=== PATIENT | male | born 1975 | race African-American/Black ===

== ENCOUNTER 2017-02-09 02:11 | Emergency (ER) | payer SELFPAY ==
[~2017-02-09] VITALS: Ht 185.4 cm; Wt 82.0 kg
[~2017-02-09 02:11] MED LIST: ALBU2.5V13
[2017-02-09] MEDS ORDERED: BACITRACIN ZINC OINT UDPKT TOP ONE ×2 (04:15→05:00)
[2017-02-09] MEDS ORDERED: LIDOCAINE HCL 1% 20ML VIAL (Pyxis) INJ MC ONE (05:00)
[2017-02-09] MEDS ORDERED: TETANUS, DIPHTHERIA, PERTUSSIS VAC/PF 0.5ML (>7YR OLD) IM ONE (06:15)
[2017-02-09 06:27] VITALS: BP 132/84
== END 2017-02-09 06:42 | disposition home or self-care (01) ==
LOC: ER 02:12
DX: S01.81XA Laceration without foreign body of other part of head, initial encounter (principal); R07.81 Pleurodynia; I10 Essential (primary) hypertension; F12.10 Cannabis abuse, uncomplicated; F17.200 Nicotine dependence, unspecified, uncomplicated; Y08.89XA Assault by other specified means, initial encounter; Y93.89 Activity, other specified; Y99.8 Other external cause status; Y92.89 Other specified places as the place of occurrence of the external cause
CPT/HCPCS: 12011; 70486; 71010; 90471; 90715; 99284; J3490; X7700; Z7610

== ENCOUNTER 2017-07-31 15:55 | Emergency (ER) | payer MEDICAID ==
[~2017-07-31] VITALS: Ht 188 cm; Wt 76.0 kg
[2017-07-31 20:48] VITALS: BP 107/66
[2017-07-31] MEDS ORDERED: LEVOFLOXACIN 250MG TABLET PO ONE (21:30)
== END 2017-07-31 22:47 | disposition home or self-care (01) ==
LOC: ER 15:55
DX: J18.9 Pneumonia, unspecified organism (principal); R07.89 Other chest pain; M79.674 Pain in right toe(s); I51.7 Cardiomegaly; J45.909 Unspecified asthma, uncomplicated; F17.210 Nicotine dependence, cigarettes, uncomplicated; F12.90 Cannabis use, unspecified, uncomplicated
CPT/HCPCS: 71010; 93005; 99284; Z7610

== ENCOUNTER 2018-09-27 14:14 | Emergency (ER) | payer MEDICAID ==
[~2018-09-27] VITALS: Ht 180.3 cm; Wt 90.0 kg
[2018-09-27] MEDS ORDERED: SODIUM CHLORIDE 0.9% 1,000 ML IV ONE (14:55)
[2018-09-27 15:45] LABS: CLARITY URINE CLEAR (CLEAR); COLOR URINE YELLOW (YELLOW); KETONES URINE NEGATIVE (NEGATIVE); LEUKOCYTE ESTERASE URINE NEGATIVE (NEGATIVE); NITRITE URINE NEGATIVE (NEGATIVE); OCCULT BLOOD URINE NEGATIVE (NEGATIVE); PROTEIN URINE NEGATIVE (NEGATIVE); UROBILINOGEN URINE 0.2 E.U./dL (0.2-1.0)
[2018-09-27 16:01] LABS: *AMPHETAMINES SCREEN URINE NEGATIVE (NEGATIVE); *BARBITURATES SCREEN URINE NEGATIVE (NEGATIVE); *BENZODIAZEPINES SCREEN URINE NEGATIVE (NEGATIVE)
[2018-09-27 16:02] LABS: *COCAINE SCREEN URINE NEGATIVE (NEGATIVE); CANNABINOID URINE SCREEN NEGATIVE (NEGATIVE); METHADONE URINE SCREEN NEGATIVE (NEGATIVE); OPIATES URINE SCREEN NEGATIVE (NEGATIVE); PHENCYCLIDINE URINE SCREEN PRESUMTIVE POSITIVE (NEGATIVE)
[2018-09-27 16:14] LABS: BASOPHILS % 0.8 % (0.0-2.0); EOSINOPHILS % 4.6 % (0.0-5.0); LYMPHOCYTES % 31.2 % (20.0-50.0); MEAN CORPUSCULAR HEMOGLOBIN 30.1 pg (28.0-32.0); MEAN PLATELET VOLUME 8.8 fl (7.4-10.4); MONOCYTES % 9.8 % (2.0-8.0); NEUTROPHILS % 53.6 % (40.0-76.0); PLATELET 271 x1000/uL (130-400); RED CELL DISTRIBUTION WIDTH 15.2 % (11.6-14.6)
[2018-09-27 16:16] LABS: CHLORIDE 107 mEq/L (98-107)
[2018-09-27 16:24] LABS: ETHANOL BLOOD 219 mg/dL
[2018-09-27 16:30] VITALS: BP 113/65
== END 2018-09-27 16:35 | disposition home or self-care (01) ==
LOC: ER 14:14
DX: T40.991A Poisoning by other psychodysleptics [hallucinogens], accidental (unintentional), initial encounter (principal); I10 Essential (primary) hypertension; J45.909 Unspecified asthma, uncomplicated; Y92.89 Other specified places as the place of occurrence of the external cause
CPT/HCPCS: 36415; 80053; 80305; 81003; 85025; 93005; 99284; G0482; J7030

== ENCOUNTER 2019-03-12 20:52 | Emergency (ER) | payer MEDICAID ==
[~2019-03-12] VITALS: Ht 188 cm; Wt 86.0 kg
[2019-03-12 22:00] VITALS: BP 116/77
[2019-03-13] MEDS ORDERED: TETANUS, DIPHTHERIA, PERTUSSIS VAC/PF 0.5ML (>7YR OLD) IM ONE (02:15)
[2019-03-13] MEDS ORDERED: ACETAMINOPHEN 325MG TABLET PO ONE (02:15)
[2019-03-13 04:46] LABS: *AMPHETAMINES SCREEN URINE PRESUMTIVE POSITIVE (NEGATIVE); *BARBITURATES SCREEN URINE NEGATIVE (NEGATIVE); *BENZODIAZEPINES SCREEN URINE NEGATIVE (NEGATIVE); *COCAINE SCREEN URINE NEGATIVE (NEGATIVE); METHADONE URINE SCREEN NEGATIVE (NEGATIVE); OPIATES URINE SCREEN NEGATIVE (NEGATIVE)
[2019-03-13 04:48] LABS: CANNABINOID URINE SCREEN PRESUMTIVE POSITIVE (NEGATIVE); PHENCYCLIDINE URINE SCREEN PRESUMTIVE POSITIVE (NEGATIVE)
== END 2019-03-13 15:01 | disposition home or self-care (01) ==
LOC: ER 20:52
DX: S00.83XA Contusion of other part of head, initial encounter (principal); S60.221A Contusion of right hand, initial encounter; S09.8XXA Other specified injuries of head, initial encounter; R07.81 Pleurodynia; F12.10 Cannabis abuse, uncomplicated; F17.200 Nicotine dependence, unspecified, uncomplicated; Z98.890 Other specified postprocedural states; Y08.89XA Assault by other specified means, initial encounter; Y93.39 Activity, other involving climbing, rappelling and jumping off; Y92.521 Bus station as the place of occurrence of the external cause; Y99.8 Other external cause status
CPT/HCPCS: 70450; 70486; 71100; 73130; 80305; 90471; 90715; 99284; Z7610

== ENCOUNTER 2019-10-11 01:59 | Emergency (ER) | payer MEDICAID, OTHER ==
[~2019-10-11] VITALS: Ht 188 cm; Wt 81.0 kg
[2019-10-11 02:41] VITALS: BP 145/80
== END 2019-10-11 04:31 | disposition left against medical advice (07) ==
LOC: ER 01:59
DX: M25.561 Pain in right knee (principal); M25.511 Pain in right shoulder; Z53.21 Procedure and treatment not carried out due to patient leaving prior to being seen by health care provider

== ENCOUNTER 2019-10-22 00:50 | Emergency (ER) | payer OTHER ==
[~2019-10-22] VITALS: Ht 188 cm; Wt 86.5 kg
[2019-10-22] MEDS ORDERED: IBUPROFEN 600MG TABLET PO ONE (01:30)
[2019-10-22 01:38] VITALS: BP 125/80
== END 2019-10-22 01:39 | disposition home or self-care (01) ==
LOC: ER 00:50
DX: R68.84 Jaw pain (principal); K08.89 Other specified disorders of teeth and supporting structures; F17.290 Nicotine dependence, other tobacco product, uncomplicated; F12.10 Cannabis abuse, uncomplicated; J45.909 Unspecified asthma, uncomplicated
CPT/HCPCS: 99283

== ENCOUNTER 2021-05-20 15:56 | Emergency (ER) | payer MEDICAID ==
[~2021-05-20] VITALS: Ht 185.4 cm; Wt 112.0 kg
[2021-05-20] MEDS ORDERED: ACETAMINOPHEN 325MG TABLET PO ONE (18:45)
[2021-05-20] MEDS ORDERED: IBUPROFEN 800MG TABLET PO ONE (18:45)
[2021-05-20] MEDS ORDERED: PENICILLIN V POTASSIUM 250MG TABLET PO SCH (18:45)
[2021-05-20] MEDS ORDERED: PENI500T MT (18:53)
[2021-05-20 20:09] VITALS: BP 136/68
== END 2021-05-20 20:11 | disposition home or self-care (01) ==
LOC: ER 15:56
DX: K12.2 Cellulitis and abscess of mouth (principal); J45.909 Unspecified asthma, uncomplicated; F17.210 Nicotine dependence, cigarettes, uncomplicated; Z88.0 Allergy status to penicillin
CPT/HCPCS: 10060; 99284; Z7610

== ENCOUNTER 2023-08-11 15:07 | Emergency (ER) | payer MEDICAID ==
[~2023-08-11] VITALS: Ht 180.3 cm; Wt 80.0 kg
[~2023-08-11 15:07] MED LIST changes: +PENI500T MT
[2023-08-11 15:10] VITALS: BP 108/62; PULSE 112; RESP 18; TEMP 98.6; O2SAT 99
[2023-08-11] MEDS ORDERED: TETANUS, DIPHTHERIA, PERTUSSIS VAC/PF 0.5ML (>10YR OLD) IM ONE ×2 (15:15→18:00)
[2023-08-11] MEDS ORDERED: LIDOCAINE HCL/EPINEPHRINE 1%-EPI 1:100,000 20 ML VIAL INFIL ONE (15:15)
[2023-08-11] MEDS ORDERED: BACITRACIN ZINC OINT UDPKT TOP ONE (15:15)
[2023-08-11] MEDS ORDERED: BACITRACIN ZINC OINT UDPKT TOP NR (18:00)
== END 2023-08-11 20:30 | disposition home or self-care (01) ==
LOC: ER 15:07
DX: S51.811A Laceration without foreign body of right forearm, initial encounter (principal); S41.112A Laceration without foreign body of left upper arm, initial encounter; S41.012A Laceration without foreign body of left shoulder, initial encounter; S09.90XA Unspecified injury of head, initial encounter; J45.909 Unspecified asthma, uncomplicated; F12.10 Cannabis abuse, uncomplicated; Y08.89XA Assault by other specified means, initial encounter; Y93.89 Activity, other specified; Y92.89 Other specified places as the place of occurrence of the external cause; Y99.8 Other external cause status
CPT/HCPCS: 70450; 12002; 12013; 99284; J3490; Z7610 ×2

== ENCOUNTER 2023-09-06 02:42 | Emergency (ER) | payer OTHER ==
[~2023-09-06] VITALS: Ht 188 cm; Wt 75.0 kg
[2023-09-06 02:47] VITALS: BP 105/61; O2SAT 97
[2023-09-06] MEDS ORDERED: SULF1TAB48 PO (05:22)
[2023-09-06] MEDS ORDERED: CEPH500T PO (05:22)
[2023-09-06 05:44] VITALS: PULSE 77; RESP 16; TEMP 98.2
== END 2023-09-06 05:45 | disposition home or self-care (01) ==
LOC: ER 02:45
DX: L03.114 Cellulitis of left upper limb (principal); Z48.02 Encounter for removal of sutures
CPT/HCPCS: 99283

== ENCOUNTER 2024-06-13 21:34 | Emergency (ER) | payer MEDICAID ==
[~2024-06-13] VITALS: Ht 188 cm; Wt 89.0 kg
[~2024-06-13 21:34] MED LIST changes: +ATROV INH; +CEPH500T PO; +LEVO-65 MT; +SULF1TAB48 PO; +[UNRECOGNIZED DRUG - CODE] PO
[2024-06-13 21:39] VITALS: O2SAT 96
[2024-06-13 22:17] VITALS: BP 153/102; PULSE 88; RESP 2; TEMP 98.8; O2SAT 100
== END 2024-06-14 00:06 | disposition left against medical advice (07) ==
LOC: ER 21:34
DX: M25.561 Pain in right knee (principal); Z53.21 Procedure and treatment not carried out due to patient leaving prior to being seen by health care provider

== ENCOUNTER 2024-12-24 03:41 | Emergency (ER) | payer MEDICAID ==
[~2024-12-24] VITALS: Ht 188 cm; Wt 83.0 kg
[2024-12-24 03:45] VITALS: O2SAT 97
[2024-12-24 04:02] VITALS: TEMP 36.5; O2SAT 97
[2024-12-24] MEDS ORDERED: NAPR-677 MT (05:55)
[2024-12-24 06:14] VITALS: BP 109/76; PULSE 99; RESP 16
[2024-12-24] MEDS: IBUPROFEN 600MG TABLET PO ONE (06:14)
== END 2024-12-24 06:15 | disposition home or self-care (01) ==
LOC: ER 04:05
DX: M79.674 Pain in right toe(s) (principal); E11.9 Type 2 diabetes mellitus without complications; J45.909 Unspecified asthma, uncomplicated; M10.9 Gout, unspecified
CPT/HCPCS: 73630; 99283

== ENCOUNTER 2025-02-14 02:24 | Emergency (ER) | payer MEDICAID ==
[~2025-02-14] VITALS: Ht 188 cm; Wt 81.3 kg
[~2025-02-14 02:24] MED LIST changes: +NAPR-677 MT
[2025-02-14 02:26] VITALS: O2SAT 98
[2025-02-14 03:01] VITALS: BP 126/102; PULSE 73; RESP 18; TEMP 36.9; O2SAT 98
[2025-02-14] MEDS ORDERED: NAPR-1176 MT (04:59)
[2025-02-14] MEDS: KETOROLAC 15MG/ML VIAL IM ONE (05:00)
== END 2025-02-14 05:29 | disposition home or self-care (01) ==
LOC: ER 02:24
DX: M79.673 Pain in unspecified foot (principal); Z79.899 Other long term (current) drug therapy
CPT/HCPCS: 99283; 96372; J1885